=== PATIENT | male | born 1945 | race Caucasian/White ===

== ENCOUNTER 2022-03-09 15:09 | Emergency (ER) | payer MEDICARE, SELFPAY ==
--- NOTE | ~2022-03-09 | CT_ITS ---
EXAMINATION: CT HEAD WITHOUT CONTRAST CT CERVICAL SPINE WITHOUT CONTRAST CLINICAL INFORMATION: Fall. COMPARISON: None TECHNIQUE: CT of the head and cervical spine were performed without intravenous contrast. Multiplanar reformats were rendered and reviewed. This CT examination was performed using dose optimization techniques as appropriate, variously including the following: *Automated exposure control *Adjustment of mA and/or kV according to patient size (this includes techniques or standardized protocols for targeted exams where dose is matched to indication/reason for exam; i.e. extremities or head) *Use of iterative reconstruction technique DLP: 702 mGy-cm. FINDINGS: There are postoperative findings related to high right frontoparietal craniotomy. There is an extra-axial collection beneath the craniotomy which is predominantly low in attenuation, presumably postsurgical. A small focus of hyperdensity within the subdural space is seen in the right frontal lobe subjacent to the extra-axial collection (series 9 image 126/227). There is confluent hypoattenuation within the high right frontal lobe and additionally within the right inferior frontal lobe which could represent edema or evolving encephalomalacia/gliosis. There is no evidence of parenchymal hemorrhage. No subarachnoid hemorrhage is seen. The ventricles are normal in size without hydrocephalus. There is no evidence of acute calvarial fracture. CT cervical spine: The cervical vertebral bodies maintain normal heights and alignment. The craniovertebral junction is intact. No fracture is seen. The facet joints are normally aligned. Multilevel degenerative spondylotic changes are noted without significant narrowing of the spinal canal. There is uncovertebral hypertrophy and facet arthropathy with significant neural foraminal stenosis on the left at C5-C6. Less advanced neural foraminal stenosis is seen at other levels. There is no consolidation within the upper lungs. Atheromatous calcifications are seen at the carotid bifurcations. CT/CT cervical spine wo con IMPRESSION: CT head: - Postoperative findings of right frontoparietal craniotomy is noted. The etiology of the postoperative changes are unknown at this time. An extra-axial collection along the craniotomy is indeterminate but presumably postsurgical. An area of hyperdensity within the subdural space of the right frontal lobe is noted, and may be posttraumatic or postsurgical. Correlation with surgical history and if possible prior postoperative CT or postoperative MRI is recommended which could establish the chronicity of these findings. No evidence of parenchymal or subarachnoid hemorrhage. CT cervical spine: - No evidence of acute traumatic injury
[2022-03-09 15:44] VITALS: BP 150/68; PULSE 86; RESP 16; TEMP 35.6; O2SAT 98; BMI 23.3
--- NOTE | 2022-03-09 15:58 | ECG_ITS ---
Test Reason : fall Blood Pressure : / mmHG Vent. Rate : 091 BPM Atrial Rate : 091 BPM P-R Int : 140 ms QRS Dur : 086 ms QT Int : 342 ms P-R-T Axes : 055 035 100 degrees QTc Int : 420 ms Normal sinus rhythm Minimal voltage criteria for LVH, may be normal variant ( Sokolow-Maldonado ) Nonspecific ST and T wave abnormality Abnormal ECG No previous ECGs available Referred By: Tonya Lieberman Electronically Signed By:MARIZOL ISLAS
--- NOTE | 2022-03-09 16:01 | ED.FALL ---
HPI - Fall General Chief Complaint: Fall Stated Complaint: fall Time Seen by Provider: 03/09/22 15:54 Source: patient Mode of arrival: EMS Limitations: no limitations History of Present Illness HPI Narrative: SNF notes noise heard from room and patient was laying his floor 1:40am. complaint: fall Onset (ago): hour(s) (12+) Fall from: out of bed Fall witnessed: no Place fall occurred: [facility] Loss of consciousness: none Prolonged down time: no Symptoms prior to fall: none Context: tripped/slipped Location of injury: other ([facility]) Severity: mild Associated symptoms (after fall): denies (states the facility just wants him to get checked out, he does admit to poor PO intake recently ) Related Data Allergies Allergy/AdvReac Type Severity Reaction Status Date / Time nitrofurantoin Allergy Unknown Verified 03/09/22 15:50 Penicillins [PCN] Allergy Unknown Verified 03/09/22 15:50 Review of Systems Review of Systems: Constitutional : No Fever, No Chills, No Fatigue, No Malaise, pos poor PO intake ENT/Mouth : No sore throat, No Rhinorrhea Eyes: No Eye Pain, No Swelling, No Redness Cardiovascular : No Chest Pain, No SOB, No Palpitations Respiratory : No Cough, No Sputum, No Wheezing Gastrointestinal : No Nausea, No Vomiting, No Diarrhea, No Constipation, No abdominal Pain, No Hematochezia, No Melena Genitourinary : No Dysuria, No Urinary Frequency, No Hematuria, Musculoskeletal : No joint pain, No Myalgias, No Joint Swelling Skin : No Skin Lesions, No rash Neuro : No Weakness, No Numbness, No Dizziness, No Headache Psych : No Anxiety/Panic, No Depression Heme/Lymph: No Bruising, No Bleeding,No Lymphadenopathy Endocrine : No Polyuria, No Polydipsia All other systems reviewed and are negative PMFSH Past Medical History Attestation statement: The following information was validated with the patient. Medical History (Updated 03/09/22 @ 19:34 by Tonya Lieberman DO) Benign brain tumor Falls GERD (gastroesophageal reflux disease) Hemiplegia HLD (hyperlipidemia) HTN (hypertension) Surgical History H/O craniotomy Social History Social History (Updated 03/09/22 @ 16:02 by Tonya Lieberman DO) Patient Tobacco Use Status: Never used Tobacco Advance Directives: No Advance Directives Information Provided: No Physical Exam Vital Signs: Vital Signs: Last Vital Signs Temp 96.0 F L 03/09/22 15:44 Pulse 86 03/09/22 15:44 Resp 16 03/09/22 15:44 BP 150/68 H 03/09/22 15:44 Pulse Ox 98 03/09/22 15:44 O2 Del Method 03/09/22 15:44 BMI result Body Mass Index 23.3 Appearance: Alert. Oriented X3. No acute distress. Eyes: Pupils equal, round and reactive to light. ENT: Pharynx normal. atraumatic Neck: Normal inspection. Neck supple. no midline ttp CVS: Normal heart rate and rhythm. Pulses normal. Chest wall: no ttp Respiratory: No respiratory distress. Breath sounds normal. Abdomen: Soft and nontender. Skin: Skin warm and dry. Normal skin color. Normal skin turgor. Extremities: No lower extremity edema. no pain with ROM no signs of trauma Neuro: Oriented X 3. chronic L sided weakness - very minimal. No sensory deficit. Course Course Course Narrative: states surgery was for meningioma at [facility] [place] 02/06/22. on lovenox 40mg daily per SNF notes will discuss case with NSGY at [facility] ?post surgical fall was over 12 hours ago discussed with NSGY Danica SHAH - 608pm derek review with NSGY attending and call back - post surgical no concern for acute trauma no WBC count, afebrile, mild UTI will start on medications and DC back MDM - Fall MDM Narrative Medical decision making narrative: 76 yo male with hx of HTN, HLD, recent craniotomy for benign brain tumor removal on keppra, no DOAC , hx of frequent falls here with c/o mechanical fall last night he is GCS 15 he has no complaints states the SNF he is staying at just wants him to get checked out. Labs, CT head for trauma, IVF given recent poor PO intake. If negative anticipate DC home. MOLST form DNR/DNI. Lab Data Result diagrams: 03/09/22 16:58 03/09/22 16:58 Labs: Lab Results 03/09/22 03/09/22 03/09/22 Range/Units 16:58 16:58 16:58 WBC 6.1 (4.8-10.8) X10*3/uL RBC 4.46 L (4.60-5.80) X10*6/uL Hgb 14.1 (14.0-18.0) g/dl Hct 42.0 (42.0-52.0) % MCV 94.2 (80.0-98.0) fL MCH 31.6 (27.0-33.0) pg MCHC 33.6 (31.0-36.0) g/dl RDW 13.4 (11.0-16.0) % Plt Count 227 (160-400) X10*3/uL MPV 9.0 L (9.4-12.4) fL Immature Gran % (Auto) 0.8 H (0.0-0.4) % Neut % (Auto) 65.5 (45-73) % Lymph % (Auto) 22.1 (20-40) % [place] % (Auto) 9.9 (2-11) % Eos % (Auto) 1.2 (0-4) % Baso % (Auto) 0.5 (0-2) % Lymph # (Auto) 1.3 (1.2-4.9) X10*3/uL [place] # (Auto) 0.6 (0.1-1.2) X10*3/uL Eos # (Auto) 0.1 (0.0-0.4) X10*3/uL Baso # (Auto) 0.0 (0.0-0.2) X10*3/uL Abs Immat Gran (auto) 0.05 H (0.00-0.03) X10*3/uL Absolute Neuts (auto) 4.0 (2.0-8.3) x10*3/uL Absolute Nucleated RBC 0.000 (0.0-0.012) X10*3/uL Nucleated RBC % (auto) 0.0 (0.0-0.2) /100WBC PT 13.0 (9.9-13.0) SEC INR 1.1 (0.9-1.1) Sodium 140 (135-145) mmol/L Potassium 4.1 (3.3-5.1) mmol/L Chloride 107 (96-108) mmol/L Carbon Dioxide 25 (22-29) mmol/L Anion Gap 12 (12-20) BUN 14 (9-16) mg/dL Creatinine 0.83 (0.5-1.4) mg/dL Estim Creat Clear Calc 68.3 Estimated GFR > 60 Random Glucose 86 (60-115) mg/dL Calcium 9.3 D (8.4-10.2) mg/dL Magnesium 2.0 (1.6-2.6) mg/dL Total Bilirubin 0.9 (0.0-1.0) mg/dL Direct Bilirubin 0.3 (0.0-0.5) mg/dL AST 32 (5-37) U/L ALT 61 H (0-40) U/L Alkaline Phosphatase 91 D (39-117) U/L Troponin I High Sens (<3.5-35.0) ng/L Total Protein 6.7 D (6.5-8.0) g/dL Albumin 3.9 D (3.5-5.0) g/dL Urine Color Urine Appearance Urine pH (5.0-8.0) Ur Specific [place] (1.005-1.025) Urine Protein (NEG-TRACE) MG/DL Urine Glucose (UA) (NEG) MG/DL Urine Ketones (NEG) MG/DL Urine Blood (NEG) Urine Nitrite (NEG) Ur Leukocyte Esterase (NEG) Urine RBC (0) /HPF Urine WBC (0-4) /HPF Ur Squamous Epith Cells /LPF Urine Bacteria /LPF Urine Sperm COVID-19 (KADY) (Negative) COVID-19 Clin Com 03/09/22 03/09/22 03/09/22 Range/Units 16:58 16:58 18:55 WBC (4.8-10.8) X10*3/uL RBC (4.60-5.80) X10*6/uL Hgb (14.0-18.0) g/dl Hct (42.0-52.0) % MCV (80.0-98.0) fL MCH (27.0-33.0) pg MCHC (31.0-36.0) g/dl RDW (11.0-16.0) % Plt Count (160-400) X10*3/uL MPV (9.4-12.4) fL Immature Gran % (Auto) (0.0-0.4) % Neut % (Auto) (45-73) % Lymph % (Auto) (20-40) % [place] % (Auto) (2-11) % Eos % (Auto) (0-4) % Baso % (Auto) (0-2) % Lymph # (Auto) (1.2-4.9) X10*3/uL [place] # (Auto) (0.1-1.2) X10*3/uL Eos # (Auto) (0.0-0.4) X10*3/uL Baso # (Auto) (0.0-0.2) X10*3/uL Abs Immat Gran (auto) (0.00-0.03) X10*3/uL Absolute Neuts (auto) (2.0-8.3) x10*3/uL Absolute Nucleated RBC (0.0-0.012) X10*3/uL Nucleated RBC % (auto) (0.0-0.2) /100WBC PT (9.9-13.0) SEC INR (0.9-1.1) Sodium (135-145) mmol/L Potassium (3.3-5.1) mmol/L Chloride (96-108) mmol/L Carbon Dioxide (22-29) mmol/L Anion Gap (12-20) BUN (9-16) mg/dL Creatinine (0.5-1.4) mg/dL Estim Creat Clear Calc Estimated GFR Random Glucose (60-115) mg/dL Calcium (8.4-10.2) mg/dL Magnesium (1.6-2.6) mg/dL Total Bilirubin (0.0-1.0) mg/dL Direct Bilirubin (0.0-0.5) mg/dL AST (5-37) U/L ALT (0-40) U/L Alkaline Phosphatase (39-117) U/L Troponin I High Sens < 3.5 (<3.5-35.0) ng/L Total Protein (6.5-8.0) g/dL Albumin (3.5-5.0) g/dL Urine Color YELLOW Urine Appearance HAZY Urine pH 6.0 (5.0-8.0) Ur Specific [place] 1.020 (1.005-1.025) Urine Protein 1+ H (NEG-TRACE) MG/DL Urine Glucose (UA) NEG (NEG) MG/DL Urine Ketones 5 (NEG) MG/DL Urine Blood 1+ H (NEG) Urine Nitrite NEG (NEG) Ur Leukocyte Esterase 3+ H (NEG) Urine RBC 1-4 (0) /HPF Urine WBC 15-29 H (0-4) /HPF Ur Squamous Epith Cells 1+ /LPF Urine Bacteria 3+ /LPF Urine Sperm NOTED COVID-19 (KADY) Negative (Negative) COVID-19 Clin Com See Note ECG Data Attestation: I personally reviewed and interpreted this ECG as follows: ECG interpretation date: 03/09/22 ECG interpretation time: 18:36 Interpretation: Rate: 91 Rhythm: NSR [place]: normal , LVH Normal P waves. Normal EM. Normal QRS complex. ST T wave : no HERNESTO, inverted aVL qTC: normal prior studies: no acute ischemia The study has been interpreted contemporaneously by me. . Discharge Plan Discharge Clinical Impression: Acute UTI Fall Qualifiers: Encounter type: initial encounter Qualified Code(s): W19.XXXA - Unspecified fall, initial encounter Patient Disposition: Xfer [facility] Instructions: Fall Prevention (ED), Urinary Tract Infection in Men (ED) Additional Instructions: return to ED for any worsening symptoms or concerns labs, CT scan no acute traumatic findings on cervical spine or brain GIVEN LEVOFLOXACIN 500MG DAILY - GIVEN DOSE IN ED, CONTINUE FOR 6 MORE DAYS
[2022-03-09] MEDS: 0.9 % Sodium Chloride 1,000 ML 999 ML IV (17:00)
[2022-03-09 17:05] LABS: MANUAL DIFF FLAG NO
[2022-03-09 17:13] LABS: Basophils Percent Auto 0.5 % (0-2); Eosinophils Absolute Auto 0.1 X10*3/uL (0.0-0.4); Eosinophils Percent Auto 1.2 % (0-4); Hemoglobin 14.1 g/dl (14.0-18.0); Imm Gran Abs Auto 0.05 X10*3/uL (0.00-0.03); Imm Gran Pct Auto 0.8 % (0.0-0.4); Lymphocytes Absolute Auto 1.3 X10*3/uL (1.2-4.9); Lymphocytes Percent Auto 22.1 % (20-40); Mean Corpuscular HGB Conc 33.6 g/dl (31.0-36.0); Mean Corpuscular Hemoglobin 31.6 pg (27.0-33.0); Mean Corpuscular Volume 94.2 fL (80.0-98.0); Monocytes Absolute Auto 0.6 X10*3/uL (0.1-1.2); Monocytes Percent Auto 9.9 % (2-11); Neutrophils Percent Auto 65.5 % (45-73); Platelet Count 227 X10*3/uL (160-400); Red Blood Count 4.46 X10*6/uL (4.60-5.80); Red Cell Distribution Width 13.4 % (11.0-16.0); White Blood Count 6.1 X10*3/uL (4.8-10.8)
[2022-03-09 17:21] LABS: INTERNATIONAL NORM RATIO 1.1 (0.9-1.1)
[2022-03-09 17:24] LABS: Alanine Aminotransferase 61 U/L (0-40); Albumin Level 3.9 g/dL (3.5-5.0); Alkaline Phosphatase 91 U/L (39-117); Anion Gap 12 (12-20); Aspartate Amino Transferase 32 U/L (5-37); Bilirubin Direct 0.3 mg/dL (0.0-0.5); Bilirubin Total 0.9 mg/dL (0.0-1.0); Blood Urea Nitrogen 14 mg/dL (9-16); Calcium 9.3 mg/dL (8.4-10.2); Carbon Dioxide 25 mmol/L (22-29); Chloride 107 mmol/L (96-108); Creatinine Clr Calc Pharmacy 68.3; Estimated Glomerular Filt Rate > 60; Glucose Random 86 mg/dL (60-115); Potassium 4.1 mmol/L (3.3-5.1); Sodium 140 mmol/L (135-145); Total Protein 6.7 g/dL (6.5-8.0)
[2022-03-09 17:27] LABS: COVID-19 Test Negative (Negative); IDNOW Serial# 16C4AD1C
[2022-03-09 17:28] LABS: Troponin-I High Sensitivity < 3.5 ng/L (<3.5-35.0)
[2022-03-09 19:03] LABS: Appearance Urine HAZY; Color Urine YELLOW; Glucose Urine UA NEG (NEG); Leukocyte Esterase Urine 3+ (NEG); Nitrite Urine NEG (NEG); UACC Culture Trigger YES; Urine Blood 1+ (NEG); Urine Ketones 5 MG/DL (NEG); Urine Protein 1+ MG/DL (NEG-TRACE)
[2022-03-09 19:16] LABS: Bacteria Urine 3+ /LPF; Sperm Urine NOTED; Squamous Epithelial Cell Urine 1+ /LPF
[2022-03-09 19:44] VITALS: BP 159/83; PULSE 97; RESP 16; TEMP 37.4; O2SAT 99
[2022-03-09] MEDS: levoFLOXacin 500 MG TABLET PO (19:46)
== END 2022-03-09 21:25 | disposition skilled nursing facility (03) ==
PROVIDERS: Emergency Provider Emergency Medicine; PCP Family Medicine
DX: N39.0 Urinary tract infection, site not specified (principal); Z91.81 History of falling; Z20.822 Contact with and (suspected) exposure to COVID-19; I10 Essential (primary) hypertension; E78.5 Hyperlipidemia, unspecified
CPT/HCPCS: 36415; 70450; 72125; 80048; 80076; 81001; 83735; 84484; 85025; 85610; 87086; 87088; 87186; 87635; 93005; 96360; 99283; 99284

== ENCOUNTER 2022-03-20 05:00 | Outpatient (REF) | payer MEDICARE, SELFPAY | END 2022-03-20 05:01 | disposition home or self-care (01) | LOC: HO.MMNH2L 05:00 | PROVIDERS: Visit Provider Family Medicine | DX: Z13.89 Encounter for screening for other disorder (principal) ==